=== PATIENT | male | born 1995 | race Caucasian/White ===

== ENCOUNTER 2020-11-08 15:10 | Emergency (ER) | payer OTHER ==
[~2020-11-08 15:10] MED LIST: ADVAIR HFA 115-28 GM INH; BISOPROLOL FUMAR5 MG PO; LEXAPRO20 MG PO; MEDROL 4MG DOSEP4 MG PO; PREDNISONE 20MG20 MG PO; SINGULAIR10 MG PO; VENTOLIN HFA IN18 GM INH; ZYRTEC10 M3 PO
[2020-11-08] MEDS ORDERED: VENTOLIN HFA IN18 GM INH (17:07)
[2020-11-08] MEDS ORDERED: MEDROL 4MG DOSEP4 MG PO (17:07)
== END 2020-11-08 17:52 | disposition home or self-care (01) ==
LOC: FER 15:10
DX: J45.909 Unspecified asthma, uncomplicated (principal); I10 Essential (primary) hypertension; Z88.5 Allergy status to narcotic agent; Z79.899 Other long term (current) drug therapy
CPT/HCPCS: 71045; 94640; 94664; J1100

== ENCOUNTER 2020-11-15 13:12 | Emergency (ER) | payer OTHER ==
[2020-11-15 14:49] LABS: BASOPHIL 0.7 % (0-2); HCT 48.5 % (42.0-52.0); HGB 15.6 g/dl (13.2-18.0); LYMPHOCYTE 37.1 % (15-48); MCH 27.9 pg (25.0-31.0); MCHC 32.2 g/dL (32.0-36.0); MCV 86.6 fL (78.0-100.0); MPV 9.6 fL (6.0-9.5); NEUTROPHIL 53.7 % (41-80); NRBC 0; PLT 297 K/uL (150-400); RDW 12.9 % (11.5-14.0)
[2020-11-15 15:10] LABS: ALBUMIN 3.7 g/dL (3.4-5.0); BILIRUBIN - TOTAL 0.4 mg/dL (0.2-1.0); CREATININE 0.91 mg/dL (0.67-1.17); GLOBULIN (CALCULATION) 3.6 g/dL; POTASSIUM 4.3 mmol/L (3.5-5.1); TOTAL PROTEIN 7.3 g/dL (6.4-8.2)
== END 2020-11-15 16:15 | disposition home or self-care (01) ==
LOC: FER 13:12
PROVIDERS: Emergency Medicine
DX: R55 Syncope and collapse (principal); R00.2 Palpitations; I10 Essential (primary) hypertension; Z79.899 Other long term (current) drug therapy; Z88.5 Allergy status to narcotic agent
CPT/HCPCS: 36415; 71045; 80053; 84484; 85025; 93005

== ENCOUNTER 2021-05-09 22:35 | Emergency (ER) | payer OTHER | END 2021-05-09 23:33 | disposition home or self-care (01) | LOC: FER 22:35 | DX: J45.901 Unspecified asthma with (acute) exacerbation (principal); I10 Essential (primary) hypertension; F41.9 Anxiety disorder, unspecified; F32.9 Major depressive disorder, single episode, unspecified; Z88.5 Allergy status to narcotic agent; Z79.899 Other long term (current) drug therapy | CPT/HCPCS: 94640; 94664 ==

== ENCOUNTER 2021-07-18 22:55 | Emergency (ER) | payer SELFPAY ==
[2021-07-19 01:52] LABS: BASOPHIL 0.7 % (0-2); EOSINOPHIL 0.4 % (0-5); HCT 48.3 % (42.0-52.0); HGB 15.6 g/dl (13.2-18.0); LYMPHOCYTE 26.1 % (15-48); MCH 27.6 pg (25.0-31.0); MCHC 32.3 g/dL (32.0-36.0); MCV 85.5 fL (78.0-100.0); MONOCYTE 5.6 % (0-12); MPV 9.9 fL (6.0-9.5); NEUTROPHIL 66.9 % (41-80); NRBC 0; PLT 302 K/uL (150-400); RBC 5.65 M/uL (4.70-6.00); WBC 6.8 K/uL (4.0-10.5)
[2021-07-19 02:07] LABS: ALBUMIN 4.1 g/dL (3.4-5.0); BILIRUBIN - TOTAL 0.4 mg/dL (0.2-1.0); BUN/CREAT RATIO (CALC) 11.6 RATIO; CREATININE 0.86 mg/dL (0.67-1.17); POTASSIUM 3.6 mmol/L (3.5-5.1); TOTAL PROTEIN 8.1 g/dL (6.4-8.2)
== END 2021-07-19 03:51 | disposition home or self-care (01) ==
LOC: FER 22:55
PROVIDERS: Emergency Medicine
DX: F41.0 Panic disorder [episodic paroxysmal anxiety] (principal); Z87.09 Personal history of other diseases of the respiratory system; Z88.8 Allergy status to other drugs, medicaments and biological substances
CPT/HCPCS: 36415; 71045; 80053; 84484; 85025; 93005

== ENCOUNTER 2021-10-02 17:26 | Emergency (ER) | payer OTHER ==
[2021-10-02] MEDS ORDERED: ADVAIR HFA 115-28 GM PO (17:51)
== END 2021-10-02 17:55 | disposition home or self-care (01) ==
LOC: FER 17:26
DX: J45.901 Unspecified asthma with (acute) exacerbation (principal); I10 Essential (primary) hypertension; Z88.5 Allergy status to narcotic agent; Z79.899 Other long term (current) drug therapy
CPT/HCPCS: 99284

== ENCOUNTER 2022-01-31 10:03 | Emergency (ER) | payer OTHER ==
[~2022-01-31 10:03] MED LIST changes: +ADVAIR HFA 115-28 GM PO
[2022-01-31] MEDS ORDERED: VIBRAMYCIN100 MG PO (12:11)
[2022-01-31] MEDS ORDERED: PREDNISONE 20MG20 MG PO (12:11)
[2022-01-31 12:20] LABS: CORONAVIRUS 2019 SARS-COV-2 NEGATIVE (NEGATIVE); INFLUENZA A NAA NEGATIVE (NEGATIVE)
== END 2022-01-31 12:45 | disposition home or self-care (01) ==
LOC: FER 10:03
PROVIDERS: Internal Medicine
DX: J45.901 Unspecified asthma with (acute) exacerbation (principal); I10 Essential (primary) hypertension; Z88.5 Allergy status to narcotic agent; Z20.822 Contact with and (suspected) exposure to COVID-19
CPT/HCPCS: 71045; 94640; J2930; U0002

== ENCOUNTER 2022-02-04 18:32 | Emergency (ER) | payer OTHER ==
[~2022-02-04 18:32] MED LIST changes: +VIBRAMYCIN100 MG PO
[2022-02-04] MEDS ORDERED: SYMBICORT 16010.2 GM INH (20:01)
[2022-02-04] MEDS ORDERED: ADVAIR HFA 115-28 GM INH (20:02)
== END 2022-02-04 20:22 | disposition home or self-care (01) ==
LOC: FER 18:32
DX: J45.909 Unspecified asthma, uncomplicated (principal); Z88.5 Allergy status to narcotic agent; Z28.311 Partially vaccinated for COVID-19
CPT/HCPCS: 94640

== ENCOUNTER 2022-02-25 08:23 | Emergency (ER) | payer OTHER ==
[~2022-02-25 08:23] MED LIST changes: +NAPROXEN500 MG PO; +ONDANSETRON ODT4 MG PO; +SYMBICORT 16010.2 GM INH
[2022-02-25 10:28] LABS: BUN/CREAT RATIO (CALC) 9.9 RATIO; CREATININE 0.91 mg/dL (0.67-1.17); MAGNESIUM 2.1 mg/dL (1.8-2.4); POTASSIUM 3.8 mmol/L (3.5-5.1)
== END 2022-02-25 10:55 | disposition home or self-care (01) ==
LOC: FER 08:23
PROVIDERS: Emergency Medicine
DX: R00.2 Palpitations (principal); Z88.5 Allergy status to narcotic agent
CPT/HCPCS: 36415; 80048; 83735; 84443; 84484; 93005

== ENCOUNTER 2022-03-05 20:21 | Emergency (ER) | payer OTHER ==
[2022-03-05] MEDS ORDERED: MEDROL 4MG DOSEP4 MG PO (21:32)
== END 2022-03-05 21:45 | disposition home or self-care (01) ==
LOC: FER 20:21
DX: J45.901 Unspecified asthma with (acute) exacerbation (principal); Z88.5 Allergy status to narcotic agent
CPT/HCPCS: 71045; J1100

== ENCOUNTER 2022-03-14 21:09 | Emergency (ER) | payer OTHER ==
[2022-03-14] MEDS ORDERED: VENTOLIN (2.5 MG/3 M INH (22:18)
[2022-03-14] MEDS ORDERED: MEDROL 4MG DOSEP4 MG PO (22:18)
== END 2022-03-14 22:57 | disposition home or self-care (01) ==
LOC: FER 21:09
DX: J45.909 Unspecified asthma, uncomplicated (principal); I10 Essential (primary) hypertension; Z88.5 Allergy status to narcotic agent; Z79.899 Other long term (current) drug therapy
CPT/HCPCS: 99284

== ENCOUNTER 2022-03-25 00:30 | Emergency (ER) | payer OTHER ==
[~2022-03-25 00:30] MED LIST changes: +VENTOLIN (2.5 MG/3 M INH
== END 2022-03-25 02:41 | disposition home or self-care (01) ==
LOC: FER 00:30
DX: J45.909 Unspecified asthma, uncomplicated (principal); I10 Essential (primary) hypertension; Z88.5 Allergy status to narcotic agent; Z79.899 Other long term (current) drug therapy
CPT/HCPCS: 99284

== ENCOUNTER 2022-03-25 11:30 | Emergency (ER) | payer OTHER | END 2022-03-25 16:07 | disposition home or self-care (01) | LOC: FER 11:30 | DX: R06.02 Shortness of breath (principal); I10 Essential (primary) hypertension; Z88.5 Allergy status to narcotic agent | CPT/HCPCS: 99284 ==

== ENCOUNTER 2022-03-29 22:25 | Emergency (ER) | payer OTHER | END 2022-03-30 01:10 | disposition home or self-care (01) | LOC: FER 22:25 | DX: J45.909 Unspecified asthma, uncomplicated (principal); F41.9 Anxiety disorder, unspecified; Z79.899 Other long term (current) drug therapy; Z88.5 Allergy status to narcotic agent | CPT/HCPCS: 93005 ==

== ENCOUNTER 2022-03-30 11:01 | Emergency (ER) | payer OTHER | END 2022-03-30 13:59 | disposition home or self-care (01) | LOC: FER 11:01 | DX: J45.909 Unspecified asthma, uncomplicated (principal); I10 Essential (primary) hypertension; Z88.5 Allergy status to narcotic agent; Z79.899 Other long term (current) drug therapy; Z28.310 Unvaccinated for COVID-19 | CPT/HCPCS: 94010 ==

== ENCOUNTER 2022-03-31 22:19 | Emergency (ER) | payer OTHER ==
[2022-04-01] MEDS ORDERED: MEDROL 4MG DOSEP4 MG PO (08:23)
[2022-04-02] MEDS ORDERED: ATARAX25 MG PO (08:28)
== END 2022-04-01 00:14 | disposition left against medical advice (07) ==
LOC: FER 22:19
DX: R21 Rash and other nonspecific skin eruption (principal); Z53.21 Procedure and treatment not carried out due to patient leaving prior to being seen by health care provider; Z88.5 Allergy status to narcotic agent
CPT/HCPCS: 99281

== ENCOUNTER 2022-04-01 07:57 | Emergency (ER) | payer OTHER ==
[2022-04-01] MEDS ORDERED: MEDROL 4MG DOSEP4 MG PO (08:23)
[2022-04-02] MEDS ORDERED: ATARAX25 MG PO (08:28)
== END 2022-04-01 08:26 | disposition home or self-care (01) ==
LOC: FER 07:57
DX: R21 Rash and other nonspecific skin eruption (principal); K21.9 Gastro-esophageal reflux disease without esophagitis; Z88.5 Allergy status to narcotic agent; Z79.899 Other long term (current) drug therapy
CPT/HCPCS: 99282

== ENCOUNTER 2022-04-01 09:10 | Emergency (ER) | payer OTHER ==
[2022-04-02] MEDS ORDERED: ATARAX25 MG PO (08:28)
== END 2022-04-01 10:13 | disposition home or self-care (01) ==
LOC: FER 09:10
DX: R21 Rash and other nonspecific skin eruption (principal); Z88.5 Allergy status to narcotic agent
CPT/HCPCS: 99282; J7512

== ENCOUNTER 2022-04-01 22:35 | Emergency (ER) | payer OTHER ==
[2022-04-02] MEDS ORDERED: ATARAX25 MG PO (08:28)
== END 2022-04-02 00:45 | disposition home or self-care (01) ==
LOC: FER 22:35
DX: T78.40XA Allergy, unspecified, initial encounter (principal); I10 Essential (primary) hypertension; J45.909 Unspecified asthma, uncomplicated; Z79.899 Other long term (current) drug therapy; Z88.5 Allergy status to narcotic agent; Z28.311 Partially vaccinated for COVID-19
CPT/HCPCS: 99282; J1100; J7512

== ENCOUNTER 2022-04-02 07:03 | Emergency (ER) | payer OTHER ==
[2022-04-02] MEDS ORDERED: ATARAX25 MG PO (08:28)
== END 2022-04-02 08:40 | disposition home or self-care (01) ==
LOC: FER 07:03
DX: R06.00 Dyspnea, unspecified (principal); F41.9 Anxiety disorder, unspecified; I10 Essential (primary) hypertension; J45.909 Unspecified asthma, uncomplicated; Z88.5 Allergy status to narcotic agent; Z28.311 Partially vaccinated for COVID-19
CPT/HCPCS: 99284

== ENCOUNTER 2022-04-03 01:25 | Emergency (ER) | payer OTHER ==
[~2022-04-03 01:25] MED LIST changes: +ATARAX25 MG PO
[2022-04-03 02:30] LABS: BASOPHIL 0.2 % (0-2); EOSINOPHIL 0 % (0-5); HCT 45.7 % (42.0-52.0); HGB 14.9 g/dl (13.2-18.0); LYMPHOCYTE 9.3 % (15-48); MCH 27.3 pg (25.0-31.0); MCHC 32.6 g/dL (32.0-36.0); MCV 83.9 fL (78.0-100.0); MONOCYTE 4.8 % (0-12); MPV 9.8 fL (6.0-9.5); NEUTROPHIL 85.2 % (41-80); NRBC 0; PLT 344 K/uL (150-400); RBC 5.45 M/uL (4.70-6.00); RDW 13.1 % (11.5-14.0); WBC 12.3 K/uL (4.0-10.5)
[2022-04-03 02:47] LABS: BUN/CREAT RATIO (CALC) 12.9 RATIO; CREATININE 0.85 mg/dL (0.67-1.17); POTASSIUM 3.6 mmol/L (3.5-5.1)
== END 2022-04-03 03:25 | disposition home or self-care (01) ==
LOC: FER 01:25
PROVIDERS: Internal Medicine
DX: J45.909 Unspecified asthma, uncomplicated (principal); I10 Essential (primary) hypertension; K21.9 Gastro-esophageal reflux disease without esophagitis; Z79.899 Other long term (current) drug therapy; Z88.5 Allergy status to narcotic agent
CPT/HCPCS: 36415; 71045; 80048; 84145; 85025; 94640; 94664

== ENCOUNTER 2022-04-03 13:43 | Emergency (ER) | payer OTHER | END 2022-04-03 18:09 | disposition home or self-care (01) | LOC: FER 13:43 | DX: I10 Essential (primary) hypertension (principal); J45.909 Unspecified asthma, uncomplicated; Z88.5 Allergy status to narcotic agent | CPT/HCPCS: J1100 ==

== ENCOUNTER 2022-04-04 06:15 | Emergency (ER) | payer OTHER | END 2022-04-04 07:16 | disposition home or self-care (01) | LOC: FER 06:15 | DX: R06.00 Dyspnea, unspecified (principal); J45.909 Unspecified asthma, uncomplicated; Z88.5 Allergy status to narcotic agent | CPT/HCPCS: 99284 ==

== ENCOUNTER 2022-04-04 20:26 | Emergency (ER) | payer OTHER ==
[2022-04-04 22:19] LABS: CORONAVIRUS 2019 SARS-COV-2 NEGATIVE (NEGATIVE); INFLUENZA A NAA NEGATIVE (NEGATIVE)
== END 2022-04-04 21:54 | disposition home or self-care (01) ==
LOC: FER 20:26
PROVIDERS: Nurse Practitioner Family
DX: F41.9 Anxiety disorder, unspecified (principal); J45.909 Unspecified asthma, uncomplicated; Z88.5 Allergy status to narcotic agent; Z20.822 Contact with and (suspected) exposure to COVID-19
CPT/HCPCS: 99284; U0002

== ENCOUNTER 2022-04-06 10:08 | Emergency (ER) | payer OTHER | END 2022-04-06 13:14 | disposition home or self-care (01) | LOC: FER 10:08 | DX: J45.901 Unspecified asthma with (acute) exacerbation (principal); I10 Essential (primary) hypertension; Z88.5 Allergy status to narcotic agent | CPT/HCPCS: 99284 ==

== ENCOUNTER 2022-04-07 11:36 | Emergency (ER) | payer OTHER | END 2022-04-07 13:53 | disposition left against medical advice (07) | LOC: FER 11:36 | DX: R06.02 Shortness of breath (principal); Z53.29 Procedure and treatment not carried out because of patient's decision for other reasons | CPT/HCPCS: 99281 ==

== ENCOUNTER 2022-04-08 13:05 | Emergency (ER) | payer OTHER | END 2022-04-08 15:38 | disposition home or self-care (01) | LOC: FER 13:05 | DX: J45.909 Unspecified asthma, uncomplicated (principal); Z88.5 Allergy status to narcotic agent | CPT/HCPCS: 99284; J1100 ==

== ENCOUNTER 2022-04-11 20:31 | Emergency (ER) | payer OTHER | END 2022-04-11 22:11 | disposition home or self-care (01) | LOC: FER 20:31 | DX: R06.02 Shortness of breath (principal); F41.9 Anxiety disorder, unspecified; Z88.5 Allergy status to narcotic agent | CPT/HCPCS: 99284 ==

== ENCOUNTER 2022-04-18 10:30 | Emergency (ER) | payer OTHER | END 2022-04-18 12:37 | disposition home or self-care (01) | LOC: FER 10:30 | DX: J45.901 Unspecified asthma with (acute) exacerbation (principal); L30.9 Dermatitis, unspecified; Z88.5 Allergy status to narcotic agent | CPT/HCPCS: 99284 ==

== ENCOUNTER 2022-04-22 00:34 | Emergency (ER) | payer OTHER | END 2022-04-22 01:40 | disposition home or self-care (01) | LOC: FER 00:34 | DX: J45.909 Unspecified asthma, uncomplicated (principal); Z88.5 Allergy status to narcotic agent | CPT/HCPCS: 99284 ==

== ENCOUNTER 2022-04-22 02:07 | Emergency (ER) | payer OTHER | END 2022-04-22 02:35 | disposition home or self-care (01) | LOC: FER 02:07 | DX: F41.9 Anxiety disorder, unspecified (principal); Z88.5 Allergy status to narcotic agent | CPT/HCPCS: 99284 ==

== ENCOUNTER 2022-04-29 04:23 | Emergency (ER) | payer OTHER ==
[2022-04-29] MEDS ORDERED: SYMBICORT 16010.2 GM INH (05:38)
== END 2022-04-29 05:51 | disposition home or self-care (01) ==
LOC: FER 04:23
DX: J45.909 Unspecified asthma, uncomplicated (principal); Z88.5 Allergy status to narcotic agent; Z28.311 Partially vaccinated for COVID-19
CPT/HCPCS: 94640

== ENCOUNTER 2022-05-02 07:34 | Emergency (ER) | payer OTHER | END 2022-05-02 08:22 | disposition home or self-care (01) | LOC: FER 07:34 | DX: J45.909 Unspecified asthma, uncomplicated (principal); F41.9 Anxiety disorder, unspecified; I10 Essential (primary) hypertension; Z88.5 Allergy status to narcotic agent; Z79.899 Other long term (current) drug therapy ==

== ENCOUNTER 2022-05-06 07:17 | Emergency (ER) | payer OTHER | END 2022-05-06 08:32 | disposition home or self-care (01) | LOC: FER 07:17 | DX: J45.901 Unspecified asthma with (acute) exacerbation (principal); I10 Essential (primary) hypertension; Z88.5 Allergy status to narcotic agent; Z79.899 Other long term (current) drug therapy | CPT/HCPCS: 94640; J1040 ==

== ENCOUNTER 2022-05-15 12:20 | Emergency (ER) | payer OTHER ==
[2022-05-15] MEDS ORDERED: MEDROL 4MG DOSEP4 MG PO (13:30)
== END 2022-05-15 13:33 | disposition home or self-care (01) ==
LOC: FER 12:20
DX: J45.901 Unspecified asthma with (acute) exacerbation (principal); Z88.5 Allergy status to narcotic agent
CPT/HCPCS: 99284

== ENCOUNTER 2022-05-19 21:52 | Emergency (ER) | payer OTHER | END 2022-05-19 22:05 | disposition home or self-care (01) | LOC: FER 21:52 | DX: J45.901 Unspecified asthma with (acute) exacerbation (principal); I10 Essential (primary) hypertension; Z88.5 Allergy status to narcotic agent; Z79.899 Other long term (current) drug therapy | CPT/HCPCS: 99284 ==

== ENCOUNTER 2022-05-23 05:43 | Emergency (ER) | payer OTHER | END 2022-05-23 06:07 | disposition home or self-care (01) | LOC: FER 05:43 | DX: R06.02 Shortness of breath (principal); J45.909 Unspecified asthma, uncomplicated; Z88.5 Allergy status to narcotic agent | CPT/HCPCS: 99284 ==

== ENCOUNTER 2022-06-01 03:23 | Emergency (ER) | payer OTHER | END 2022-06-01 04:07 | disposition home or self-care (01) | LOC: FER 03:23 | DX: F41.9 Anxiety disorder, unspecified (principal); R06.02 Shortness of breath; I10 Essential (primary) hypertension; J45.909 Unspecified asthma, uncomplicated; Z88.5 Allergy status to narcotic agent; Z79.899 Other long term (current) drug therapy | CPT/HCPCS: 93005 ==

== ENCOUNTER 2022-07-03 13:38 | Emergency (ER) | payer OTHER | END 2022-07-03 15:35 | disposition left against medical advice (07) | LOC: FER 13:38 | DX: J45.909 Unspecified asthma, uncomplicated (principal); Z53.21 Procedure and treatment not carried out due to patient leaving prior to being seen by health care provider ==

== ENCOUNTER 2022-07-04 10:59 | Emergency (ER) | payer OTHER | END 2022-07-04 13:48 | disposition home or self-care (01) | LOC: FER 10:59 | DX: S06.0X0A Concussion without loss of consciousness, initial encounter (principal); I10 Essential (primary) hypertension; K21.9 Gastro-esophageal reflux disease without esophagitis; Z88.5 Allergy status to narcotic agent; Z79.899 Other long term (current) drug therapy; V49.9XXA Car occupant (driver) (passenger) injured in unspecified traffic accident, initial encounter | CPT/HCPCS: 70450 ==